=== PATIENT | female | born 1990 | race African-American/Black ===

== ENCOUNTER 2020-10-03 08:39 | Emergency (ER) | payer OTHER ==
[~2020-10-03] VITALS: Ht 154.9 cm; Wt 50.8 kg
[2020-10-03] MEDS ORDERED: PREDNISONE 20 M20 MG PO (10:30)
[2020-10-03] MEDS ORDERED: PEPCID40 MG PO (10:30)
[2020-10-03] MEDS ORDERED: BENADRYL25 MG PO (10:30)
[2020-10-03 11:07] VITALS: BP 118/76
--- NOTE | 2020-10-03 16:06 | EKG ---
[place] [id number] [address] [facility] [employer] [place] [address] ELECTROCARDIOGRAM REPORT Name: ANTONETTE WRIGHT [id number] Admission: 10/03/20 Attend Phys: Discharge: 10/03/20 Date of : [birth year] Report #: [id number] [facility] ED Test Date: 2020-10-03 Test Time: 09:37:06 Pat Name: ANTONETTE WRIGHT Department: Room: Gender: F Transport Specialist: JCHAIHEIKE : 1990 Requested By: Win Wesley Order Number: [id number] MD: Esau Cavazos Measurements Intervals [place] Rate: 57 P: 70 OR: 143 QRS: 50 QRSD: 61 T: 27 QT: 368 QTc: 359 Interpretive Statements Sinus rhythm RSR' in V1 or V2, probably normal variant No previous ECG available for comparison Electronically Signed On 10-03-2020 16:06:34 CDT by Esau Cavazos [email or web address] <ELECTRONICALLY SIGNED> By: Esau Cavazos MD 10/03/20 1606 [id number] [id number] MD ANTONY Salazar
== END 2020-10-03 11:07 | disposition home or self-care (01) ==
LOC: ER 08:39
DX: T78.49XA Other allergy, initial encounter (principal); H57.89 Other specified disorders of eye and adnexa; R20.2 Paresthesia of skin; R06.02 Shortness of breath; X58.XXXA Exposure to other specified factors, initial encounter